=== PATIENT | male | born 1995 | race Two or more races ===

== ENCOUNTER 2023-06-14 01:16 | Inpatient (IN) | payer MEDICAID ==
[~2023-06-14] VITALS: Ht 188 cm; Wt 116.5 kg
[2023-06-14] MEDS ORDERED: ZOLPIDEM TARTRATE 10 MG TABLET PO PRN (01:30)
[2023-06-14] MEDS ORDERED: HALOPERIDOL 5 MG TABLET PO PRN (01:30)
[2023-06-14] MEDS ORDERED: LORazepam 2 MG TABLET PO PRN (01:30)
[2023-06-14 06:21] VITALS: BP 128/75; PULSE 95; RESP 18; TEMP 98.2; O2SAT 97
[2023-06-14] MEDS ORDERED: INFLUENZA VIRUS VACCINE QVS 2023-24 (6MO+)/PF 60 MCG/0.5 ML SYRINGE IM. ONE (06:30)
[2023-06-14 09:08] VITALS: BP 155/89; PULSE 100; RESP 18; TEMP 97.9; O2SAT 96
[2023-06-14] MEDS: LURASIDONE HCL 80 MG TABLET PO SCH (16:41)
[2023-06-14] MEDS: QUEtiapine FUMARATE 300 MG TABLET PO SCH (16:41)
[2023-06-14] MEDS: CloZAPine 100 MG TABLET PO SCH (20:13)
[2023-06-14] MEDS: CITALOPRAM HYDROBROMIDE 20 MG TABLET PO SCH (20:13)
[2023-06-14 21:20] VITALS: BP 115/67; PULSE 87; RESP 16; TEMP 97.5; O2SAT 95
[2023-06-15 07:15] VITALS: BP 125/62; PULSE 78; RESP 18; TEMP 98; O2SAT 98
[2023-06-15] MEDS ORDERED: ACETAMINOPHEN 325 MG TABLET PO PRN (07:15)
[2023-06-15] MEDS: QUEtiapine FUMARATE 300 MG TABLET PO SCH ×2 (08:07→16:42)
[2023-06-15 08:15] VITALS: RESP 18
[2023-06-15 08:25] LABS: BASOPHILS % (AUTO) 0.3 % (0.0-2.0); EOSINOPHILS % (AUTO) 0 % (1.0-6.0); LYMPHOCYTES # (AUTO) 1.2 K/uL (1.0-4.8); LYMPHOCYTES % (AUTO) 28.7 % (22.0-44.0); MEAN CORPUSCULAR HEMOGLOBIN 29.4 pg (26.0-34.0); MEAN CORPUSCULAR HGB CONC 33.3 G/dL (31.0-37.0); MEAN CORPUSCULAR VOLUME 88 fL (80-100); MONOCYTES # (AUTO) 0.5 K/uL (0.1-1.0); MONOCYTES % (AUTO) 12.3 % (2.0-9.0); NEUTROPHILS # (AUTO) 2.4 K/uL (1.8-7.7); NEUTROPHILS % (AUTO) 58.7 % (40.0-70.0); PLATELET COUNT (AUTO) 206 K/uL (150-450); RED BLOOD CELL COUNT(AUTO) 4.76 MIL/uL (4.50-5.90); RED CELL DISTRIBUTION WIDTH 13.1 % (11.5-14.5); WHITE BLOOD COUNT (AUTO) 4.1 K/uL (4.5-11.0)
[2023-06-15 08:30] VITALS: BP 134/75; PULSE 92; RESP 18; TEMP 97.6; O2SAT 97
[2023-06-15 09:32] LABS: CHOL/HDL RATIO 4.3 (4.2-7.3); FREE T4 (FREE THYROXINE) 0.9 ng/dL (0.76-1.46); THYROID STIMULATING HORMONE 1.04 uIU/mL (0.36-3.74)
[2023-06-15 11:39] LABS: HEMOGLOBIN A1C 5.5 % (3.8-5.6)
[2023-06-15] MEDS: LURASIDONE HCL 80 MG TABLET PO SCH (16:42)
[2023-06-15] MEDS: CloZAPine 100 MG TABLET PO SCH (20:01)
[2023-06-15] MEDS: CITALOPRAM HYDROBROMIDE 20 MG TABLET PO SCH (20:01)
[2023-06-15 23:45] VITALS: RESP 18
[2023-06-16] MEDS: QUEtiapine FUMARATE 300 MG TABLET PO SCH (08:23)
[2023-06-16 09:04] VITALS: BP 115/74; PULSE 88; RESP 17; TEMP 97.3; O2SAT 97
[2023-06-16] MEDS ORDERED: CITA-144 PO ×2 (10:43→12:08)
[2023-06-16] MEDS ORDERED: QUET300T2 PO (10:43)
[2023-06-16] MEDS ORDERED: LURA80TA2 PO (10:43)
[2023-06-16] MEDS ORDERED: CLOZ100T61 PO ×2 (10:44→12:08)
[2023-06-16] MEDS ORDERED: LURA80TA4 PO (12:08)
[2023-06-16] MEDS ORDERED: QUET300T19 PO (12:08)
== END 2023-06-16 12:40 | disposition home or self-care (01) | DRG 750 ==
LOC: B3A 05:49 → B2S 06-15 17:05
PROVIDERS: ADMIT Psychiatry & Neurology Child & Adolescent Psychiatry; ATTEND Psychiatry & Neurology Child & Adolescent Psychiatry
DX: F25.0 Schizoaffective disorder, bipolar type (principal); R45.851 Suicidal ideations; Z79.899 Other long term (current) drug therapy
CPT/HCPCS: 80061; 83036; 84439; 84443; 85025; 90686